=== PATIENT | female | born 1950 | race Caucasian/White ===

== ENCOUNTER → 2018-03-25 12:45 | Outpatient (CLI) | payer MEDICARE, OTHER, BC, SELFPAY ==
--- NOTE | 2018-03-25 | DI.CT.S_ITS ---
PROCEDURE: CT LUMBAR SPINE WO CON INDICATIONS: Low back pain. Right leg radicular pain TECHNIQUE: Noncontrast 3 mm thick sections acquired from the T12 level to the sacrum. Sagittal and coronal reformats were constructed. For radiation dose reduction, the following was used: automated exposure control. COMPARISON: [facility], CR, SPINE LUMB 2 OR 3VW, 12/04/2015, 11:23. [facility], CR, XR LUMBAR SPINE 2 OR 3 VIEWS, 03/23/2018, 10:12. [facility], MR, L-SPINE WITHOUT CONTRAST, 05/07/2017, 12:34. FINDINGS: Image quality: Excellent. Bones: Postsurgical changes compatible with L2-S1 posterior and interbody fusion. Orthopedic hardware is intact. No lucency is identified the bone hardware interface noted. Postsurgical changes compatible with left L3-L4 and left L5-S1 laminotomies noted. Postsurgical changes compatible with left L5-S1 partial facetectomy noted. There is normal bony alignment. There is approximately 21? of convex left thoracolumbar spine scoliosis. No acute vertebral body compression fractures. No suspicious lytic or blastic bony lesions. Central spinal caliber is of normal overall caliber. No pars defects. T12-L1: Normal appearance. L1-L2: Disc height is normal. Mild, diffuse disc bulge. No central stenosis. No neural foraminal narrowing. No neural impingement. L2-L3: Status post fusion. Posterior disc osteophyte complex. Mild facet and mild ligamentum flavum hypertrophy. Mild narrowing of the central canal. Moderate right and mild left neural foraminal narrowing. No definite neural impingement. L3-L4: Status post fusion. Mild, diffuse disc bulge. Mild bilateral facet hypertrophy. No central stenosis. Moderate right neural foraminal narrowing. No definite neural impingement. L4-L5: Status post fusion. Mild, diffuse disc bulge. Mild to moderate facet hypertrophy. Mild ligamentum flavum hypertrophy. Mild to moderate narrowing of the central canal. Mild to moderate bilateral neural foraminal narrowing. No definite neural impingement. L5-S1: Status post fusion. No central stenosis. No neural foraminal narrowing. No definite neural impingement. Soft tissues: No retroperitoneal masses or hematomas. Visualized aorta is normal in caliber. IMPRESSION: 1. Postsurgical changes. 2. Multilevel degenerative disc disease and facet arthropathy. 3. Mild to moderate L4-L5 central canal narrowing. Mild L2-L3 central canal narrowing. 4. Moderate right and mild left L2-L3 neural foraminal narrowing. Mild to moderate bilateral L4-L5 neural foraminal narrowing. Moderate right L3-L4 neural foramen. 5. No definite neural impingement. 6. Convex to left scoliosis. Dictated by: Mila Butcher MD, PhD on 03/25/2018 at 15:23 Approved by: Mila Butcher MD, PhD on 03/25/2018 at 15:41
== END ==
PROVIDERS: Family Provider Internal Medicine; PCP Internal Medicine; Visit Provider Orthopaedic Surgery
DX: M51.16 Intervertebral disc disorders with radiculopathy, lumbar region (principal); M47.26 Other spondylosis with radiculopathy, lumbar region; M48.061 Spinal stenosis, lumbar region without neurogenic claudication; S39.012D Strain of muscle, fascia and tendon of lower back, subsequent encounter; M41.9 Scoliosis, unspecified; Z98.1 Arthrodesis status
CPT/HCPCS: 72131

== ENCOUNTER → 2018-06-16 10:49 | Outpatient (CLI) | payer MEDICARE, OTHER, BC, SELFPAY ==
--- NOTE | 2018-06-16 | DI.MRI.S_ITS ---
PROCEDURE: MR LUMBAR SPINE WO/W CON INDICATIONS: HISTORY OF LUMBAR FUSION TECHNIQUE: Noncontrast sagittal T1 spin echo and T2 fast spin echo, sagittal STIR, axial T1 and T2 fast spin echo through the lumbar spine. In cases with scoliosis, additional coronal T2 fast spin echo may be performed. After the administration of contrast, sagittal and axial T1 spin echo with fat saturation through the lumbar spine. COMPARISON: [facility], RF, LUMBAR TRANSFORAMINAL DARIAN, 05/10/2018, 12:29. [facility], MR, L-SPINE WITHOUT CONTRAST, 05/07/2017, 12:34. [facility], CT, CT LUMBAR SPINE WO CON, 03/25/2018, 13:11. [facility], CR, L-SPINE 2-3 VIEWS, 07/01/2017, 7:24. FINDINGS: Image quality: Excellent. Alignment and curvature: There is moderate levoscoliosis; otherwise normal bony alignment. Marrow: There is surgical fusion from L2-S1. Marrow is of normal overall signal. No acute vertebral body compression fractures. No suspicious marrow enhancement. Spinal cord: Conus medullaris terminates at the L1-L2 level. Visualized spinal cord demonstrates normal signal, without suspicious enhancement. Paraspinous soft tissues: No paravertebral masses or abnormal enhancement. L1-L2: Mild loss of disc height. Moderate disc desiccation. There is diffuse posterior disc bulge. The central canal is mildly narrowed. Mild bilateral foraminal stenosis. L2-L3: Discectomy and posterior fusion. There is posterior osteophyte. The central canal is mildly narrowed. Mild right foraminal stenosis. Mild left foraminal stenosis. L3-L4: Discectomy and posterior fusion. The central canal is patent. Mild bilateral foraminal stenosis. L4-L5: Discectomy and posterior fusion. The central canal is patent. Mild bilateral foraminal stenosis. L5-S1: Discectomy and posterior fusion. The central canal is patent. Mild bilateral foraminal stenosis. IMPRESSION: 1. Multilevel degenerative disc disease and facet arthropathy as described. 2. Mild central canal stenosis at L1-L2 and L2-L3. 3. Mild foraminal stenosis as described. Dictated by: Julio Brewer M.D. on 06/16/2018 at 13:09 Approved by: Julio Brewer M.D. on 06/16/2018 at 18:22
== END ==
PROVIDERS: Family Provider Internal Medicine; PCP Internal Medicine; Visit Provider Orthopaedic Surgery
DX: M48.062 Spinal stenosis, lumbar region with neurogenic claudication (principal); M51.36 Other intervertebral disc degeneration, lumbar region; M47.816 Spondylosis without myelopathy or radiculopathy, lumbar region; M48.061 Spinal stenosis, lumbar region without neurogenic claudication; Z98.1 Arthrodesis status
CPT/HCPCS: 72158; A9579

== ENCOUNTER 2018-10-05 00:14 | Emergency (ER) | payer MEDICARE, OTHER, BC, SELFPAY ==
[2018-10-05 00:26] VITALS: BP 118/108; PULSE 95; RESP 26; TEMP 36.7; O2SAT 100; BMI 22.8
--- NOTE | 2018-10-05 00:27 | ED_ITS ---
HPI - Abdominal Pain General Chief Complaint: Abdominal Pain Stated Complaint: vomiting, thinks she has the flu BP high Time Seen by Provider: 10/05/18 00:16 Source: patient Mode of arrival: ambulatory Limitations: no limitations History of Present Illness HPI narrative: Patient is a 68-year-old female here for evaluation of diarrhea, nausea and vomiting, and abdominal pain. Patient's symptoms started within the past 12 hours. No recent travel. No urinary symptoms. No fevers. She vomited multiple times. No prior abdominal surgeries. Has not tried anything for symptoms prior to arrival Related Data Home Medications Medication Instructions Recorded Confirmed BORON/CA/CU/MG/MN/VIT D/ZINC 1 tab PO #0 12/20/11 (#CALCIUM 600 + MINERALS) CHOLESTYRAMINE (Cholestyramine 1 pow NA #0 12/20/11 Resin) lisinopril 2.5 mg PO BID #0 12/20/11 naproxen sodium 1 tab PO QDAYP PRN #0 12/20/11 atorvastatin [Lipitor] 10 mg PO HS #0 06/10/17 ibandronate 150 mg PO QMONTH #0 06/10/17 multivitamin [Multiple Vitamins] 1 tab PO QDAY #0 06/10/17 Previous Rx's Medication Instructions Recorded hydroxyzine pamoate 25 mg PO Q4HP PRN #40 cap 07/03/17 oxycodone 5 mg PO Q4HP PRN #60 07/03/17 ondansetron 4 mg PO Q6H PRN #10 tab 10/05/18 Allergies Allergy/AdvReac Type Severity Reaction Status Date / Time adhesive tape [ADHESIVE TAPE] Allergy Intermediate RED BUMPS Verified 10/05/18 00:37 Penicillins [PENICILLINS] AdvReac Mild GI UPSET Verified 10/05/18 00:37 Review of Systems Constitutional Denies fever(s) and Denies headache(s) ENT Ears, Nose, Mouth, and Throat: Denies vertigo and Denies headache(s) Cardiovascular Denies chest pain and Denies dyspnea Respiratory Denies dyspnea Gastrointestinal Gastrointestinal: Reports abdominal pain, Reports diarrhea, Reports nausea and Reports vomiting Genitourinary Denies dysuria Musculoskeletal Denies myalgias and Denies arthralgias Integumentary/Breasts Denies rash Neurologic Denies vertigo and Denies headache(s) Hematologic/Lymphatic Denies easy bleeding and Denies easy bruising [facility] Medical History Hypertension (Acute) Social History Smoking Status: Never smoker Social History Smoking Status: Never smoker Exam Initial Vital Signs Initial Vital Signs: Vital Signs Temperature 98.0 F 10/05/18 00:26 Pulse Rate 95 H 10/05/18 00:26 Respiratory Rate 26 H 10/05/18 00:26 Blood Pressure 118/108 H 10/05/18 00:26 Pulse Oximetry 100 10/05/18 00:26 Const General: cooperative, well developed, well groomed and No acute distress Orientation: alert, awake and oriented x3 HENMT Head: normal to inspection and normocephalic Resp Effort & Inspection: normal respiratory effort Auscultation: clear to auscultation bilaterally Cardio Rate: regular rate Rhythm: regular rhythm Pulses: radial pulses present GI Inspection: distended Palpation: soft, No firm and tender (Diffusely tender) Skin Lesions: no lesions Rashes: no rashes Neuro General: alert and awake Cognition: normal cognition Speech: speech normal Motor: muscle tone normal throughout Sensory Exam: no sensory deficits noted Extrem General: normal to inspection and capillary refill normal Psych Appearance: grossly normal and well kempt Scores GCS Swapna coma scale eye opening: Spontaneous Swapna coma scale verbal response: Orientated [place] coma scale motor response: Obey commands Swapna coma scale total score: 15 Course Orders Ordered: ED Orders 10/05/18 00:25 Complete Blood Count AUTO DIFF Stat Comprehensive Metabolic Panel Stat Lipase Stat Urine Culture Stat Urine Microscopic Stat 10/05/18 00:28 XR abdomen 1V Stat Discontinued Medications Sodium Chloride (Normal Saline 0.9%) 1,000 mls @ 1,000 mls/hr IV BOLUS ONE Stop: 10/05/18 01:26 Last Infusion: 10/05/18 01:39 Dose: 0 mls/hr Admin: 10/05/18 00:47 Dose: 1,000 mls/hr Ondansetron HCl (Zofran) 4 mg IV NOW ONE Stop: 10/05/18 01:00 Last Admin: 10/05/18 01:02 Dose: 4 mg Vital Signs - 8 hr 10/05/18 00:26 10/05/18 00:40 10/05/18 00:48 Temperature 98.0 F 98.0 F Pulse Rate 95 H 95 H 72 Respiratory Rate 26 H 26 H 20 Blood Pressure 118/108 H 118/108 H Blood Pressure [Left Arm] 108/55 L Pulse Oximetry 100 100 100 10/05/18 01:38 Temperature Pulse Rate 92 H Respiratory Rate 20 Blood Pressure Blood Pressure [Left Arm] 112/60 Pulse Oximetry 100 MDM - Abdominal Pain Lab Data Attestation: I reviewed the patient's lab results. Result diagrams: 10/05/18 00:25 10/05/18 00:25 Lab Results 10/05/18 10/05/18 10/05/18 Range/Units 00:25 00:25 00:25 WBC 8.1 (4.5-11.0) X10^3/uL RBC 4.96 (4.0-5.2) X10^6/uL Hgb 14.4 (12.0-16.0) g/dL Hct 43.6 (36-46) % MCV 87.8 (80-100) fL MCH 29.1 (26-34) PG MCHC 33.1 (30-36) % RDW 13.5 (11.6-14.8) % Plt Count 219 (150-400) X10^3/uL Neut % (Auto) 86.5 H (50-75) % Lymph % (Auto) 7.6 L (25-40) % Jessamine % (Auto) 5.5 (3-14) % Eos % (Auto) 0.4 L (2-4) % Baso % (Auto) 0.0 (0-2) % Neut # (Auto) 7000 (6412-5958) /uL Lymph # (Auto) 600 L (1574-7338) /uL Jessamine # (Auto) 400 (0-900) /uL Eos # (Auto) 0 (0-450) /uL Baso # (Auto) 0 (0-100) /uL Sodium 135 L (137-145) mmol/L Potassium 3.7 (3.4-5.1) mmol/L Chloride 99 (98-107) mmol/L Carbon Dioxide 26 (22-32) mmol/L BUN 27 H (7-17) mg/dL Creatinine 0.80 (0.52-1.04) mg/dL Estimated GFR > 60.0 (>60) mL/min BUN/Creatinine Ratio 33.8 H (6-22) Glucose 136 H (80-110) mg/dL Calcium 8.3 L (8.4-10.2) mg/dL Total Bilirubin 0.6 (0.2-1.3) mg/dL AST 28 (14-36) IU/L ALT 23 (9-52) IU/L Alkaline Phosphatase 51 (38-126) U/L Total Protein 6.9 (6.3-8.2) g/dL Albumin 3.9 (3.5-5.0) g/dL Globulin 3.0 (1.7-4.1) g/dL Albumin/Globulin Ratio 1.3 (1.0-2.8) Lipase 79 (23-300) U/L Urine RBC None seen (0-5/HPF) Urine WBC 0-1/hpf (0-5/HPF) Ur Squamous Epith Cells 1-5 /hpf (0-5/HPF) Urine Bacteria Few (2-10) H (None) Urine Mucus 1+ H (Negative) Ur Culture Indicated? Specimen cultured Point of care testing: Urine Dip Bedside Urine Glucose Negative Bedside Urine Bilirubin + 1 Bedside Urine Ketone +/- 5 Urine Specific Grayling 1.030 Bedside Urine Occult Blood - Negative Bedside Urine pH 5.5 Bedside Urine Protein +/- 15 Bedside Urine Urobilinogen +/- 1mg Bedside Urine Nitrite - Negative Bedside Urine Leukocytes + 70 Esterase Imaging Data Abdominal x-ray: Attestation: I personally reviewed and interpreted this imaging study as follows: My impression: No dilated loops of bowel, no free air MDM Narrative Medical decision making narrative: Patient's labs fairly unremarkable. Her urine does have high specific gravity another signs of dehydration. She was given fluids and Zofran which improved her symptoms quite a bit. She was able to tolerate oral intake. She did not have an acute abdomen upon initial evaluation. Will hold on other radiologic studies for now. The abdominal x-ray did not show any definitive signs of obstruction. Will send home with Zoan. She was given return precautions and follow-up instructions. She expressed understanding and agreement with plan. Discharge Plan Departure Patient Disposition: Home Clinical Impression: Nausea & vomiting Qualifiers: Vomiting type: unspecified Vomiting Intractability: non-intractable Qualified Code(s): R11.2 - Nausea with vomiting, unspecified Abdominal pain Qualifiers: Abdominal location: generalized Qualified Code(s): R10.84 - Generalized abdominal pain Diarrhea Qualifiers: Diarrhea type: unspecified type Qualified Code(s): R19.7 - Diarrhea, unspecified Instructions: Diarrhea, Acute Abdominal Pain, Nausea and Vomiting-Adult Activity Restrictions/Additional Instructions: Be sure to increase your fluid intake. Contact your primary provider for follow-up. Take the nausea medication as directed. Return to the emergency department for any new or worsening symptoms continue all of your medications as directed Prescriptions: New ondansetron 4 mg tablet,disintegrating 4 mg PO Q6H PRN (Reason: nausea and vomiting) Qty: 10 RF: 0 No Action lisinopril 2.5 MG tablet 2.5 mg PO BID Qty: 0 RF: 0 CHOLESTYRAMINE (Cholestyramine Resin) 1 pow NA Qty: 0 RF: 0 naproxen sodium 220 MG tablet 1 tab PO QDAYP PRNQty: 0 RF: 0 BORON/CA/CU/MG/MN/VIT D/ZINC (#CALCIUM 600 + MINERALS) 1 tab PO Qty: 0 RF: 0 multivitamin [Multiple Vitamins] 1 EACH tablet 1 tab PO QDAY Qty: 0 RF: 0 atorvastatin [Lipitor] 10 MG tablet 10 mg PO HS Qty: 0 RF: 0 ibandronate 150 MG tablet 150 mg PO QMONTH Qty: 0 RF: 0 oxycodone 5 MG tablet 5 mg PO Q4HP PRNQty: 60 RF: 0 hydroxyzine pamoate 25 MG capsule 25 mg PO Q4HP PRNQty: 40 RF: 0 Referrals: Alysa Richards MD [Primary Care Provider] -
--- NOTE | 2018-10-05 00:28 | DI.RAD.S_ITS ---
PROCEDURE: XR ABDOMEN 1V INDICATIONS: Diarrhea and abdominal distention TECHNIQUE: One view of the abdomen acquired. COMPARISON: None. FINDINGS: Surgical changes and devices: Lumbar fixation hardware is grossly intact. Bowel: Bowel gas pattern is normal. Soft tissues: No suspicious abdominal calcifications. Visualized solid organ contours appear normal in size. Bones: No suspicious bony lesions. IMPRESSION: No acute intra-abdominal findings. Dictated by: Bree Joseph M.D. on 10/05/2018 at 8:52 Approved by: Bree Joseph M.D. on 10/05/2018 at 8:52
[2018-10-05 00:36] LABS: Add Manual Diff / Slide Review NO; Basophils Absolute Auto 0 /uL (0-100); Eosinophils Absolute Auto 0 /uL (0-450); Eosinophils Percent Auto 0.4 % (2-4); Hematocrit 43.6 % (36-46); Hemoglobin 14.4 g/dL (12.0-16.0); Lymphocytes Absolute Auto 600 /uL (1100-4500); Lymphocytes Percent Auto 7.6 % (25-40); Mean Corpuscular HGB Conc 33.1 % (30-36); Mean Corpuscular Hemoglobin 29.1 PG (26-34); Mean Corpuscular Volume 87.8 fL (80-100); Monocytes Absolute Auto 400 /uL (0-900); Monocytes Percent Auto 5.5 % (3-14); Neutrophils Absolute Auto 7000 /uL (1500-7000); Neutrophils Percent Auto 86.5 % (50-75); Platelet Count 219 X10^3/uL (150-400); Red Blood Cell Count 4.96 X10^6/uL (4.0-5.2); Red Cell Distribution Width 13.5 % (11.6-14.8); White Blood Cell Count 8.1 X10^3/uL (4.5-11.0)
[2018-10-05 00:39] LABS: RBC Urine None Seen (0-5/HPF)
[2018-10-05 00:40] VITALS: BP 118/108; PULSE 95; RESP 26; TEMP 36.7; O2SAT 100; BMI 22.8
[2018-10-05 00:43] LABS: Alanine Aminotransferase 23 IU/L (9-52); Albumin 3.9 g/dL (3.5-5.0); Albumin Globulin Ratio 1.3 (1.0-2.8); Alkaline Phosphatase 51 U/L (38-126); Aspartate Aminotransferase 28 IU/L (14-36); BUN Creatinine Ratio 33.8 (6-22); Bilirubin Total 0.6 mg/dL (0.2-1.3); Blood Urea Nitrogen 27 mg/dL (7-17); Calcium 8.3 mg/dL (8.4-10.2); Carbon Dioxide 26 mmol/L (22-32); Chloride 99 mmol/L (98-107); Estimated Glomerular Filt Rate > 60.0 mL/min (>60); Glucose 136 mg/dL (80-110); HEMOLYSIS < 15 (0-50); Lipase 79 U/L (23-300); Potassium 3.7 mmol/L (3.4-5.1); Sodium 135 mmol/L (137-145); Total Protein 6.9 g/dL (6.3-8.2)
[2018-10-05] MEDS: SODIUM CHLORIDE 0.9% 1,000 ML 1000 ML IV (00:47)
[2018-10-05 00:48] VITALS: BP 108/55; PULSE 72; RESP 20; O2SAT 100
[2018-10-05 00:49] LABS: Bacteria Urine Few (2-10); Squamous Epithelial Cell Urine 1-5 /HPF (0-5/HPF); WBC Urine 0-1/HPF (0-5/HPF)
[2018-10-05 00:50] LABS: Culture Indicated Urine Specimen Cultured; Mucus Urine 1+ (Negative)
[2018-10-05] MEDS: ONDANSETRON 4 MG/2 ML INJ IV (01:02)
[2018-10-05 01:38] VITALS: BP 112/60; PULSE 92; RESP 20; O2SAT 100
--- NOTE | 2018-10-05 01:38 | PC.NURSE ---
PO challenge initiated.
--- NOTE | 2018-10-05 01:51 | PC.NURSE ---
PO challenge tolerated. MD at bedside.
[2018-10-05] MEDS: ONDANSETRON 4 MG ODT PREPACK 1 BOTTLE MISC (01:57)
== END 2018-10-05 02:05 | disposition home or self-care (01) ==
PROVIDERS: Emergency Provider Emergency Medicine; Family Provider Internal Medicine; PCP Internal Medicine
DX: R11.2 Nausea with vomiting, unspecified (principal); R10.84 Generalized abdominal pain
CPT/HCPCS: 36415; 36591; 74018; 80053; 81003; 81015; 83690; 85025; 87086; 96361; 96374; 99283; 99284; J2405

== ENCOUNTER → 2024-11-23 13:32 | Outpatient (CLI) | payer MEDICARE, OTHER, BC, SELFPAY ==
--- NOTE | 2024-11-23 13:36 | DI.US.S_ITS ---
PROCEDURE: US PELVIC COMPLETE INDICATIONS: postmenopausal bleeding TECHNIQUE: Real-time scanning was performed of the pelvic organs, with image documentation. Additional endovaginal scanning was necessary due to incomplete visualization of the adnexal and endometrial structures by transabdominal scanning. COMPARISON: None. FINDINGS: Uterus: Uterus is anteverted and normal in size at 6.6 x 2.2 x 4.4 cm. The myometrium is homogeneous. The endometrium measures 2 mm combined thickness. Small amount of fluid noted in the endometrial canal. Ovaries: The right ovary is not visualized on this exam. The left ovary measures 1.9 x 1.0 x 2.9 cm, with a calculated ovarian volume of 2.9 cc. The ovaries have a normal sonographic appearance. Less than 12 follicles can be seen in each ovary. No adnexal masses are seen. Other: No pathologic free abdominal or pelvic fluid. IMPRESSION: Borderline atrophy of the endometrium in this postmenopausal patient which may explain patient's abnormal bleeding. Right ovary not visualized. Normal appearance of the left ovary. We strive to produce accurate, complete, and clear reports of imaging services. To assist us in improving patient care, this report was composed using standard report templates and voice recognition software. Therefore, it may contain abnormal punctuation, insertions and/or omissions. Occasional wrong-word or sound-alike substitutions may occur. Though we review the report and make efforts to correct it, we do recommend that the report be read carefully in proper context to recognize any text inaccuracies. Dictated by: Bhaskar Soriano M.D. on 11/24/2024 at 12:23 Approved by: Bhaskar Soriano M.D. on 11/24/2024 at 12:38
== END ==
PROVIDERS: Family Provider Internal Medicine; PCP Family Medicine; Referring Provider Family Medicine; Visit Provider Family Medicine
DX: N95.0 Postmenopausal bleeding (principal)
CPT/HCPCS: 76830; 76856